=== PATIENT | male | born 1970 | race Hispanic/Latino ===

== ENCOUNTER 2023-04-03 02:02 | Emergency (ER) | payer OTHER ==
[~2023-04-03] VITALS: Ht 170.2 cm; Wt 183.3 kg
[2023-04-03 02:05] VITALS: BP 161/99
[2023-04-03] MEDS ORDERED: PENICILLIN G BENZATHINE LA 600,000 UNITS/ML SYG IM ONE (03:00)
[2023-04-03] MEDS ORDERED: PENICILLIN G BENZATHINE LA 1.2 MILUNITS/2 ML SYG IM ONE (03:00)
[2023-04-03] MEDS ORDERED: HYDROCODONE/ACETAMINOPHEN 5/325 MG TAB PO ONE (03:30)
== END 2023-04-03 03:57 | disposition home or self-care (01) ==
LOC: EDH 02:02
DX: J02.0 Streptococcal pharyngitis (principal); R06.02 Shortness of breath; Z20.822 Contact with and (suspected) exposure to COVID-19; Z98.890 Other specified postprocedural states
CPT/HCPCS: 99284; 71045; 87635; 84484; 87880; 87804 ×2; 83605; 36415; 96372; J0561; C9803